=== PATIENT | male | born 1990 | race Caucasian/White ===

== ENCOUNTER 2022-02-21 08:36 | Inpatient (IN) | payer MEDICARE, MEDICAID ==
[2022-02-21 10:35] LABS: ALT (SGPT) Less than 6 U/L (8-55); AST (SGOT) 12 U/L (5-34); Albumin 3.6 g/dL (3.5-5.0); Alkaline Phosphatase 44 U/L (40-110); Anion Gap 11 mmol/L (10-20); BUN (Urea Nitrogen) 15 mg/dL (8.9-20.6); Bilirubin, Total 0.5 mg/dL (0.2-1.2); Calc. Creatinine Clearance 0 mL/min (70-130); Calcium 8.7 mg/dL (7.8-10.44); Carbon Dioxide 25 mmol/L (22-29); Chloride 107 mmol/L (98-107); Estimated GFR 109; Globulin 2.7 g/dL (2.4-3.5); Glucose 128 mg/dL (70-105); Iron 12 ug/dL (65-175); Iron Binding Capacity, Total 378 mcg/dL (261-462); Protein, Total 6.3 g/dL (6.0-8.3); Sodium 139 mmol/L (136-145)
[2022-02-21 10:59] LABS: Hemoglobin 6.7 g/dL (13.5-17.5); Mean Corpuscular HGB CONC 26.6 g/dL (32.0-36.0); Mean Corpuscular Hemoglobin 17.5 pg (27.0-33.0); Mean Corpuscular Volume 65.8 fl (81.2-95.1); Platelet Count 253 10x3/uL (150-450); RBC Distribution Width 22.4 % (11.5-14.5); Red Blood Cell (RBC) Count 3.83 10x6/uL (4.32-5.72); White Blood Cell (WBC) Count 3.3 10x3/uL (3.5-10.5)
[2022-02-21 11:33] LABS: Band 5 % (5-11); Eosinophils 10 % (0-10)
[2022-02-21 11:34] LABS: Lymphocytes 37 % (21-51); Monocytes 10 % (0-10)
[2022-02-21 11:36] LABS: Anisocytosis MODERATE=16-30 cells (100X) (0-5/hpf); Hypochromia MODERATE=16-30 cells (100X) (0-5/hpf); Microcytosis MODERATE=15-30 cells (100X) (0-5/hpf); Neutrophil 38 % (42-75); Ovalocytes MODERATE= 6-15 cells (100X) (0-1/hpf); Poikilocytosis SLIGHT = 6-15 cells (100X) (0-5/hpf); Polychromasia SLIGHT = 2-3 cells (100X) (0-2/hpf)
[2022-02-21 11:37] LABS: Macrocytosis SLIGHT = 6-15 cells (100X) (0-5/hpf)
[2022-02-21 11:38] LABS: Tear Drops SLIGHT = 2-5 cells (100X) (0-1/hpf)
[2022-02-21 11:39] LABS: Large Platelets MODERATE; Platelet Morphology Comment Appears Adequate
[2022-02-21 11:40] LABS: MDiff Complete? YES
[2022-02-21] MEDS ORDERED: Acetaminophen 650 MG Suppository PR PRN (17:21)
[2022-02-21] MEDS ORDERED: Acetaminophen 325 MG TAB PO PRN (17:21)
[2022-02-21] MEDS ORDERED: Guaifenesin DM 100-10/5 ML UDCUP PO PRN (17:21)
[2022-02-21] MEDS ORDERED: Ondansetron PF 4 MG/2 ML Vial IVP PRN (17:21)
[2022-02-21] MEDS ORDERED: Ondansetron ODT 4 MG TAB PO PRN (17:21)
[2022-02-21 18:30] VITALS: BMI 28.9
[2022-02-21] MEDS ORDERED: GoLYTELY 4,000 ml Bottle PO SCH (20:00)
[2022-02-21] MEDS: Sodium Chloride 0.9% 1,000 ML IV SCH (20:34)
[2022-02-21] MEDS: Pantoprazole 40 MG VIAL IVP SCH (20:59)
[2022-02-22 00:40] LABS: SARS-CoV-2 NAA Rapid Test DETECTED (NotDetected)
[2022-02-22 04:45] LABS: Hemoglobin 8.3 g/dL (13.5-17.5); Mean Corpuscular HGB CONC 27.8 g/dL (32.0-36.0); RBC Distribution Width 21.6 % (11.5-14.5); White Blood Cell (WBC) Count 4.6 10x3/uL (3.5-10.5)
[2022-02-22 04:54] LABS: Anion Gap 13 mmol/L (10-20); BUN (Urea Nitrogen) 11 mg/dL (8.9-20.6); Calc. Creatinine Clearance 121 mL/min (70-130); Calcium 8.5 mg/dL (7.8-10.44); Carbon Dioxide 25 mmol/L (22-29); Chloride 108 mmol/L (98-107); Estimated GFR 118; Glucose 90 mg/dL (70-105); Potassium 3.9 mmol/L (3.5-5.1); Sodium 142 mmol/L (136-145)
[2022-02-22 05:18] LABS: Platelet Count 261 10x3/uL (150-450)
[2022-02-22 05:19] LABS: MDiff Complete? YES
[2022-02-22 05:23] LABS: Eosinophils 8 % (0-10); Lymphocytes 38 % (21-51); Monocytes 3 % (0-10); Neutrophil 51 % (42-75)
[2022-02-22 05:25] LABS: Anisocytosis MODERATE=16-30 cells (100X) (0-5/hpf); Microcytosis MODERATE=15-30 cells (100X) (0-5/hpf); Poikilocytosis SLIGHT = 6-15 cells (100X) (0-5/hpf)
[2022-02-22 05:26] LABS: Hypochromia SLIGHT = 6-15 cells (100X) (0-5/hpf); Macrocytosis SLIGHT = 6-15 cells (100X) (0-5/hpf)
[2022-02-22 05:27] LABS: Ovalocytes SLIGHT = 2-5 cells (100X) (0-1/hpf); Polychromasia SLIGHT = 2-3 cells (100X) (0-2/hpf); Tear Drops SLIGHT = 2-5 cells (100X) (0-1/hpf)
[2022-02-22 05:28] LABS: Platelet Morphology Comment Appears Adequate
[2022-02-22] MEDS: Sodium Chloride 0.9% 1,000 ML IV SCH (06:33)
[2022-02-22] MEDS: Pantoprazole 40 MG VIAL IVP SCH (08:42)
[2022-02-22] MEDS ORDERED: Levothyroxine Sodium 100 MCG TAB PO SCH (08:43)
[2022-02-22] MEDS ORDERED: Loratadine 10 MG TAB PO SCH (09:00)
[2022-02-22] MEDS ORDERED: Ketamine 50 MG/ML (10ML VIAL) ONE (09:55)
[2022-02-22] MEDS ORDERED: Midazolam HCl 2 mg/2 ml Vial ONE (10:04)
[2022-02-22] MEDS ORDERED: Lidocaine 2% MPF 10 ML AMP (For Epidural Use) ONE (10:04)
[2022-02-22] MEDS ORDERED: Glycopyrrolate 0.2 MG/ML 5 ML SYRINGE ONE (10:04)
[2022-02-22] MEDS ORDERED: PROPOFOL 20 ML ONE (10:04)
[2022-02-22 12:49] VITALS: TEMP 97.7
[2022-02-22 15:08] VITALS: BP 93/66
[2022-02-22] MEDS ORDERED: Ferrous Sulfate 325 MG TAB PO SCH (17:00)
[2022-02-23] MEDS ORDERED: Non-Formulary Medication 1 EACH (Omeprazole [Omeprazole] 40 MG Capsule.Dr) PO SCH (06:00)
[2022-02-23] MEDS ORDERED: Levothyroxine Sodium 100 MCG TAB PO SCH (06:00)
[2022-02-23] MEDS ORDERED: Polyethylene Glycol 3350 17 GM Packet PO SCH (09:00)
[2022-02-23] MEDS ORDERED: Ascorbic Acid 500 mg Chewable Tablet PO SCH (09:00)
[2022-02-23] MEDS ORDERED: Zinc Sulfate 220 MG CAP PO SCH (09:00)
[2022-02-26 11:59] LABS: EliA Celiac New Method **** NEW METHOD ****; t-Transglutaminase (tTG) IgA 0.6 EliAU/mL (<7 Negative); t-Transglutaminase (tTG) IgG 2.7 EliAU/mL (<7 Negative)
== END 2022-02-22 15:15 | disposition home or self-care (01) | DRG 377 ==
LOC: CSHERS 08:36 → CSHTELE 17:46
PROVIDERS: ADMIT Internal Medicine; ATTEND Nurse Practitioner Acute Care
PROC: 30233N1 Transfusion of Nonautologous Red Blood Cells into Peripheral Vein, Percutaneous Approach (ICD-10-PCS; 2022-02-21)
PROC: 8E0ZXY6 Isolation (ICD-10-PCS; 2022-02-21)
PROC: 0DB98ZX Excision of Duodenum, Via Natural or Artificial Opening Endoscopic, Diagnostic (ICD-10-PCS; principal; 2022-02-22)
PROC: 0DJD8ZZ Inspection of Lower Intestinal Tract, Via Natural or Artificial Opening Endoscopic (ICD-10-PCS; 2022-02-22)
DX: K92.2 Gastrointestinal hemorrhage, unspecified (principal); U07.1 COVID-19; E03.9 Hypothyroidism, unspecified; D50.9 Iron deficiency anemia, unspecified; G47.33 Obstructive sleep apnea (adult) (pediatric); K21.9 Gastro-esophageal reflux disease without esophagitis; K44.9 Diaphragmatic hernia without obstruction or gangrene; K64.4 Residual hemorrhoidal skin tags; K64.8 Other hemorrhoids; K31.819 Angiodysplasia of stomach and duodenum without bleeding; K20.90 Esophagitis, unspecified without bleeding; Z98.890 Other specified postprocedural states; Z88.0 Allergy status to penicillin; Z88.8 Allergy status to other drugs, medicaments and biological substances; Q90.9 Down syndrome, unspecified
CPT/HCPCS: 36415; 36430; 80048; 80053; 82274; 82728; 83516; 83540; 83550; 83615; 85025; 86140; 86850; 86900; 86901; 88305; 93005; 99285; C9113; J2250; J2704; J7050; P9016; Q0162; U0002

== ENCOUNTER 2022-04-14 07:32 | Outpatient (CLI) | payer MEDICARE, MEDICAID | END 2022-04-14 07:33 | disposition home or self-care (01) | LOC: CSHCT 07:32 | PROVIDERS: ATTEND Internal Medicine | DX: D50.9 Iron deficiency anemia, unspecified (principal); K22.89 Other specified disease of esophagus; K31.89 Other diseases of stomach and duodenum; N32.89 Other specified disorders of bladder | CPT/HCPCS: 74177 ==

== ENCOUNTER 2023-09-24 12:47 | Outpatient (CLI) | payer MEDICARE, MEDICAID ==
[~2023-09-24 12:47] MED LIST: Iopamidol 300 61% 100 ML VIAL FS ONE
== END 2023-09-24 12:48 | disposition home or self-care (01) ==
LOC: CSHCT 12:47
PROVIDERS: ATTEND Physician Assistant Medical
DX: K50.00 Crohn's disease of small intestine without complications (principal); D50.9 Iron deficiency anemia, unspecified; K44.9 Diaphragmatic hernia without obstruction or gangrene; K21.9 Gastro-esophageal reflux disease without esophagitis; K63.89 Other specified diseases of intestine; N32.89 Other specified disorders of bladder
CPT/HCPCS: 74178; Q9967